=== PATIENT | female | born 1985 | race Two or more races ===

== ENCOUNTER 2018-06-11 14:55 | Inpatient (IN) | payer OTHER ==
[~2018-06-11] VITALS: Ht 172.7 cm; Wt 3.2 kg
[2018-06-11] MEDS ORDERED: PRENATABS RX T1 EACH PO (15:44)
== END 2018-06-23 14:52 | disposition home or self-care (01) | DRG 785 ==
LOC: OB/GYN 06-19 14:54 → O/R 06-20 06:00 → OB/GYN 06-20 10:45
PROVIDERS: ADMIT Obstetrics & Gynecology
PROC: 0UL70ZZ Occlusion of Bilateral Fallopian Tubes, Open Approach (ICD-10-PCS; 2018-06-20)
PROC: 4A1HXCZ Monitoring of Products of Conception, Cardiac Rate, External Approach (ICD-10-PCS; 2018-06-20)
PROC: 10D00Z1 Extraction of Products of Conception, Low, Open Approach (ICD-10-PCS; principal; 2018-06-20 10:45)
DX: O82 Encounter for cesarean delivery without indication (principal); Z3A.39 39 weeks gestation of pregnancy; Z37.0 Single live birth; Z30.2 Encounter for sterilization